=== PATIENT | male | born 1990 | race Caucasian/White ===

== ENCOUNTER 2018-06-20 16:32 | Emergency (ER) | payer OTHER ==
[~2018-06-20] VITALS: Ht 165.1 cm; Wt 87.1 kg
[2018-06-20 16:53] VITALS: BP 116/92
--- NOTE | 2018-06-20 16:58 | NUR ---
PATIENT SENT TO THE LOBBY. NO AVAIL. BED AT THIS TIME
--- NOTE | 2018-06-20 17:31 | NUR ---
PATIENT STILL IN THE LOBBY WITH FAMILY
--- NOTE | 2018-06-20 17:34 | NUR ---
PT AMBULATES TO BED 1
--- NOTE | 2018-06-20 17:35 | NUR ---
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 LOWER X1 MONTH WORST TODAY. PER PATIENT, HAS NO DENTIST. - SWELLING, PT IS AAOX4, VSS, BED DOWN, BEDRAIL UP X 1, ER MD AWARE AND NOTIFIED OF PT STATUS. DENIES HX: RX; ADVIL EARLIER TODAY
[2018-06-20] MEDS ORDERED: traMADol 50 MG TAB PO ONE (18:25)
--- NOTE | 2018-06-20 18:35 | NUR ---
Patient discharged with v/s stable. Written and verbal after care instructions given and explained. Patient alert, oriented and verbalized understanding of instructions. Ambulatory with steady gait. All questions addressed prior to discharge. ID band removed. Patient advised to follow up with PMD. Rx of TRAMADOL AND MOTRIN given. Patient educated on indication of medication including possible reaction and side effects. Opportunity to ask questions provided and answered.
[2018-06-20 18:43] VITALS: BP 116/92
== END 2018-06-20 18:35 | disposition home or self-care (01) ==
LOC: MED 16:32
DX: S02.5XXA Fracture of tooth (traumatic), initial encounter for closed fracture (principal); X58.XXXA Exposure to other specified factors, initial encounter; Y93.89 Activity, other specified; Y92.89 Other specified places as the place of occurrence of the external cause; Y99.8 Other external cause status
CPT/HCPCS: 99283